=== PATIENT | male | born 1980 | race Two or more races ===

== ENCOUNTER → 2023-09-16 10:41 | Outpatient (CLI) | payer OTHER ==
[2023-09-16 11:39] LABS: HEMATOCRIT 45.6 % (39.0-48.0); HEMOGLOBIN 15.1 g/dL (13-16.00); MEAN CELL VOLUME 91.9 fL (80.0-100.00); MEAN CORPUSCULAR HEMOGLOBIN 30.5 pg (27.00-32.0); MEAN CORPUSCULAR HGB CONC 33.2 g/dl (32.0-36.0); PLATELET COUNT 339 K/uL (150-450); RED BLOOD COUNT 4.96 M/uL (4.00-6.00); RED CELL DISTRIBUTION WIDTH 13.4 % (11.5-14.5)
[2023-09-16 12:50] LABS: ALBUMIN 4.1 gm/dL (3.4-5.0); BILIRUBIN TOTAL 0.98 mg/dL (0.3-1.2); CALCIUM 9.3 mg/dL (8.5-10.1); CHOL HDL RATIO 5.9 (0-5.0); CREATININE SERUM 1.05 mg/dL (0.70-1.30); GFR 76.38; GLOBULINA 3.2 G/DL (2.4-3.5); POTASSIUM 4.53 mEq/L (3.5-5.1); PROSTATIC SPECIFIC ANTIGEN 1.35 NG/ML (0.010-4.00); TOTAL PROTEIN 7.3 gm/dL (6.4-8.2); TSH 0.91 uIU/mL (0.358-3.74)
== END | disposition home or self-care (01) ==
LOC: LAB 10:41
PROVIDERS: ATTEND Internal Medicine
DX: N40.0 Benign prostatic hyperplasia without lower urinary tract symptoms (principal); I11.9 Hypertensive heart disease without heart failure; E11.9 Type 2 diabetes mellitus without complications; E03.9 Hypothyroidism, unspecified; E78.2 Mixed hyperlipidemia

== ENCOUNTER → 2024-04-27 09:23 | Outpatient (CLI) | payer OTHER ==
[2024-04-27 11:39] LABS: ALBUMIN 3.9 gm/dL (3.4-5.0); BILIRUBIN TOTAL 0.69 mg/dL (0.3-1.2); CALCIUM 8.8 mg/dL (8.5-10.1); CHOL HDL RATIO 4.1 (0-5.0); CREATININE SERUM 1.06 mg/dL (0.70-1.30); GFR 75.55; GLOBULINA 3.2 G/DL (2.4-3.5); POTASSIUM 4.46 mEq/L (3.5-5.1); TOTAL PROTEIN 7.1 gm/dL (6.4-8.2); TSH 0.882 uIU/mL (0.358-3.74)
[2024-04-27 11:46] LABS: HEMATOCRIT 41.8 % (39.0-48.0); HEMOGLOBIN 14.4 g/dL (13-16.00); MEAN CELL VOLUME 92.4 fL (80.0-100.00); MEAN CORPUSCULAR HEMOGLOBIN 31.9 pg (27.00-32.0); MEAN CORPUSCULAR HGB CONC 34.5 g/dl (32.0-36.0); PLATELET COUNT 257 K/uL (150-450); RED BLOOD COUNT 4.53 M/uL (4.00-6.00); RED CELL DISTRIBUTION WIDTH 13.4 % (11.5-14.5)
== END | disposition home or self-care (01) ==
LOC: LAB 09:23
PROVIDERS: ATTEND Internal Medicine
DX: I11.9 Hypertensive heart disease without heart failure (principal); E11.9 Type 2 diabetes mellitus without complications; E03.9 Hypothyroidism, unspecified; E78.2 Mixed hyperlipidemia

== ENCOUNTER 2025-04-19 10:36 | Outpatient (CLI) | payer OTHER | END 2025-04-19 10:43 | disposition home or self-care (01) | LOC: RAD 10:36 | DX: M25.561 Pain in right knee (principal) ==

== ENCOUNTER 2025-06-23 08:38 | Outpatient (CLI) | payer OTHER | END 2025-06-23 08:50 | disposition home or self-care (01) | LOC: MRI 08:38 | DX: S83.231A Complex tear of medial meniscus, current injury, right knee, initial encounter (principal) | CPT/HCPCS: 73721 ==